=== PATIENT | female | born 1975 | race African-American/Black ===

== ENCOUNTER 2021-07-08 10:10 | Inpatient (IN) | payer BC ==
[2021-07-08 10:57] VITALS: BMI 37.4
[2021-07-08] MEDS ORDERED: ELECTROLYTE-148 SOLN 500 ML IV SCH (11:00)
[2021-07-08] MEDS ORDERED: CITRIC ACID/SODIUM CITRATE 30 ML UNIT-DOSE CUP PO ONE ×2 (11:30→13:22)
[2021-07-08] MEDS ORDERED: ELECTROLYTE-148 SOLN 1,000 ML IV SCH ×2 (11:30→13:30)
[2021-07-08] MEDS ORDERED: ELECTROLYTE-148 SOLN 500 ML IV ONE (13:22)
[2021-07-08] MEDS ORDERED: OXYTOCIN 20 UNITS in 0.9% NS 20 UNIT/1,000 ML INFUS.BAG IV ONE ×2 (13:36→21:19)
[2021-07-08] MEDS ORDERED: morphine SULFATE (PF) 1 MG/2 ML SYRINGE ONE (13:37)
[2021-07-08] MEDS ORDERED: PHENYLEPHRINE HCL 10 MG/1 ML SINGLE DOSE VIAL ONE (13:37)
[2021-07-08] MEDS ORDERED: ceFAZolin SODIUM 1 GM VIAL ONE ×2 (13:40→16:34)
[2021-07-08] MEDS ORDERED: ONDANSETRON 4 MG/2 ML VIAL ONE (13:55)
[2021-07-08] MEDS ORDERED: KETOROLAC TROMETHAMINE 30 MG/1 ML VIAL ONE (13:55)
[2021-07-08] MEDS ORDERED: IBUPROFEN 800 MG/8 ML IJ IVPB PRN (15:23)
[2021-07-08] MEDS ORDERED: METHYLERGONOVINE MALEATE 0.2 MG/1 ML AMP IM PRN (15:23)
[2021-07-08] MEDS ORDERED: oxyCODONE HCL 5 MG TABLET PO PRN ×2 (15:23)
[2021-07-08] MEDS ORDERED: OXYTOCIN 20 UNITS in 0.9% NS 20 UNIT/1,000 ML INFUS.BAG IV SCH (15:30)
[2021-07-08] MEDS ORDERED: ONDANSETRON 4 MG/2 ML VIAL IVPUSH PRN (15:32)
[2021-07-08] MEDS: ACETAMINOPHEN 1000 MG/100 ML VIAL (NON FORMULARY) IVPB SCH ×2 (16:48→21:55)
[2021-07-09 07:51] LABS: BASO % 0.2 % (0-2.0); EOS % 1.3 % (0-4.5); HEMATOCRIT 36.9 % (32.4-45.2); HEMOGLOBIN 12.3 GM/dL (10.7-15.3); LYMPH % 12.1 % (8-40); MCH 29.5 pg (25.7-33.7); MCHC 33.2 g/dl (32.0-36.0); MEAN CELL VOLUME 88.9 fl (80-96); MEAN PLT VOLUME 8.9 fl (7.5-11.1); NEUT % 76.4 % (42.8-82.8); PLATELET COUNT 150 10^3/uL (134-434); RBC 4.16 M/mm3 (3.60-5.2); RDW 15.4 % (11.6-15.6); WHITE BLOOD COUNT 5.3 K/mm3 (4.0-10.0)
[2021-07-09] MEDS: ACETAMINOPHEN 325 MG TABLET (FP) PO PRN ×2 (09:10→14:33)
[2021-07-09] MEDS: PRENATAL VITAMINS W/ FOLIC ACID TABLET (FP) PO SCH (10:16)
[2021-07-09] MEDS: SIMETHICONE 80 MG TAB.CHEW (FP) PO PRN (14:33)
[2021-07-09] MEDS ORDERED: BISACODYL 10 MG SUPP.RECT RC PRN (15:23)
[2021-07-09] MEDS: SENNOSIDES/DOCUSATE COMBO (SENNA PLUS) TABLET (UD) PO PRN (20:54)
[2021-07-09] MEDS: IBUPROFEN 600 MG TABLET (FP) PO PRN (20:55)
[2021-07-10] MEDS: IBUPROFEN 600 MG TABLET (FP) PO PRN ×4 (06:18→21:42)
[2021-07-10] MEDS: PRENATAL VITAMINS W/ FOLIC ACID TABLET (FP) PO SCH (09:55)
[2021-07-10] MEDS: SIMETHICONE 80 MG TAB.CHEW (FP) PO PRN ×2 (09:56→21:42)
[2021-07-10] MEDS: SENNOSIDES/DOCUSATE COMBO (SENNA PLUS) TABLET (UD) PO PRN (21:41)
[2021-07-11] MEDS: SIMETHICONE 80 MG TAB.CHEW (FP) PO PRN (08:44)
[2021-07-11] MEDS: IBUPROFEN 600 MG TABLET (FP) PO PRN (08:45)
[2021-07-11] MEDS: PRENATAL VITAMINS W/ FOLIC ACID TABLET (FP) PO SCH (09:00)
[2021-07-11 09:38] VITALS: BP 117/71; PULSE 82; TEMP 98.2
== END 2021-07-11 12:35 | disposition home or self-care (01) | DRG 784 ==
LOC: JLDR 10:10 → J3W 16:20
PROVIDERS: ADMIT Obstetrics & Gynecology; ATTEND Obstetrics & Gynecology
PROC: 10D00Z1 Extraction of Products of Conception, Low, Open Approach (ICD-10-PCS; principal; 2021-07-09)
PROC: 0UB70ZZ Excision of Bilateral Fallopian Tubes, Open Approach (ICD-10-PCS; 2021-07-09)
DX: O34.211 Maternal care for low transverse scar from previous cesarean delivery (principal); O10.92 Unspecified pre-existing hypertension complicating childbirth; N85.8 Other specified noninflammatory disorders of uterus; Z3A.38 38 weeks gestation of pregnancy; Z30.2 Encounter for sterilization; Z37.0 Single live birth
CPT/HCPCS: 36415; 85025; 88302-TC; 88307-TC; J0131